=== PATIENT | male | born 1975 | race Caucasian/White ===

== ENCOUNTER → 2023-01-15 07:33 | Outpatient (CLI) | payer BC, SELFPAY ==
--- NOTE | ~2023-01-15 | MR_ITS ---
EXAMINATION: MR brain/brain stem wo/w con DATE: 01/15/2023 08:18 INDICATION: Wilson's palsy. TECHNIQUE: Magnetic resonance imaging (MRI) of the brain and brainstem was performed without and with 20 mL MultiHance intravenous contrast. COMPARISON: None. FINDINGS: There is no intracranial hemorrhage, acute infarction, or abnormal intracranial mass lesion . There are scattered areas of nonspecific increased T2-weighted signal intensity in the cerebral whi te matter, which is within normal limits for the patient's age. The ventricles are normal in size. Th ere is mild mucosal thickening in the ethmoid sinuses. The orbits are normal. The mastoid air cells a re normal. There is enhancement of the left facial nerve in the peripheral aspect of the left interna l auditory canal. IMPRESSION: 1. Enhancement of the left facial nerve in the peripheral aspect of the left internal auditory canal, consistent with Wilson's palsy. Reviewed, dictated and finalized at location A. IMPRESSION: 1. Enhancement of the left facial nerve in the peripheral aspect of the left in ternal auditory canal, consistent with Wilson's palsy.
== END ==
PROVIDERS: PCP Internal Medicine; Visit Provider Internal Medicine
DX: G51.0 Bell's palsy (principal)
CPT/HCPCS: 70553; A9577